=== PATIENT | male | born 1965 | race Caucasian/White ===

== ENCOUNTER → 2016-11-20 | Outpatient (CLI) | payer OTHER ==
[~2016-11-20] VITALS: Ht 177.8 cm; Wt 149.7 kg
[~2016-11-20] MED LIST: ACET500C OR; ACTO45TA OR; ADVI200T PO; ALLERGY RELIEF PO; ALPH600C PO; ALTA10CA OR; ALTA1CAP4 PO; AMLO5TAB2 PO; AMOX500C OR; ASPI325T OR; ATOR40TA75 PO; BENF150C PO; CLAR1TAB2 PO; COLA100C2 OR; DOCU10CA PO; GABA-282 PO; GLUC1000 OR; GREE1CAP5 PO; HYDR12CA PO; IBUP-1022 PO; INSULANT SC; LIDOCAINE 2% INJ 100 MG/5 ML SDV (FOR ANES.) As Ordered ONE; LOPR50TA OR; METF500T13 PO; METH1TAB40 PO; NORV5TAB OR; NS 1,000 ML IV ONE; NYST1POW9 TOP; PRAV20TA2 OR; PROBCAP4 PO; PROPOFOL 200 MG/20 ML VIAL As Ordered ONE; ROCE1INJ4 IV; SILV1CRE60 TOP; TYLE325T5 PO; [UNRECOGNIZED DRUG - OTHER] TOP; hctz PO
--- NOTE | 2016-11-20 10:52 | ROOR ---
Patient Name: Fermin Knapp Procedure Date: 11/20/2016 10:07 AM Date of : 1965 Age: 51 Room: [facility] Gender: Male Note Status: Finalized Procedure: Colonoscopy Indications: Screening for colorectal malignant neoplasm Providers: Reji Valdes MD Referring MD: FESTUS GOODEN MD Requesting Provider: Medicines: Monitored Anesthesia Care Complications: No immediate complications. Procedure: Pre-Anesthesia Assessment: - Prior to the procedure, a History and Physical was performed, and patient medications and allergies were reviewed. The patient is competent. The risks and benefits of the procedure and the sedation options and risks were discussed with the patient. All questions were answered and informed consent was obtained. Patient identification and proposed procedure were verified by the physician, the nurse and the pallet stone inserter in the procedure room. Mental Status Examination: alert and oriented. Airway Examination: normal oropharyngeal airway and neck mobility. Respiratory Examination: clear to auscultation. CV Examination: normal. Prophylactic Antibiotics: The patient does not require prophylactic antibiotics. Prior Anticoagulants: The patient has taken no previous anticoagulant or antiplatelet agents. ASA Grade Assessment: II - A patient with mild systemic disease. After reviewing the risks and benefits, the patient was deemed in satisfactory condition to undergo the procedure. The anesthesia plan was to use monitored anesthesia care (MAC). Immediately prior to administration of medications, the patient was re-assessed for adequacy to receive sedatives. The heart rate, respiratory rate, oxygen saturations, blood pressure, adequacy of pulmonary ventilation, and response to care were monitored throughout the procedure. The physical status of the patient was re-assessed after the procedure. The Colonoscope was introduced through the anus and advanced to the cecum, identified by appendiceal orifice and ileocecal valve. The colonoscopy was performed without difficulty. The patient tolerated the procedure well. The quality of the bowel preparation was adequate to identify polyps 6 mm and larger in size and fair. The ileocecal valve, appendiceal orifice, and rectum were photographed. Scope insertion time was 5 minutes. Scope withdrawal time was 20 minutes. The total duration of the procedure was 25 minutes. Findings: The perianal and digital rectal examinations were normal. A 4 mm polyp was found in the transverse colon. The polyp was sessile. The polyp was removed with a cold biopsy forceps. Resection and retrieval were complete. Verification of patient identification for the specimen was done by the physician and nurse using the patient's name, date and medical record number. Estimated blood loss was minimal. Multiple small and large-mouthed diverticula were found from sigmoid to descending colon. There was no evidence of diverticular bleeding. The exam was otherwise without abnormality on direct and retroflexion views. Impression: - Preparation of the colon was fair. - One 4 mm polyp in the transverse colon, removed with a cold biopsy forceps. Resected and retrieved. - Mild diverticulosis from sigmoid to descending colon. There was no evidence of diverticular bleeding. - The examination was otherwise normal on direct and retroflexion views. Recommendation: - Patient has a contact number available for emergencies. The signs and symptoms of potential delayed complications were discussed with the patient. Return to normal activities tomorrow. Written discharge instructions were provided to the patient. - High fiber diet. - Continue present medications. - Await pathology results. - Repeat colonoscopy in 3 years because the bowel preparation was suboptimal and for surveillance based on pathology results. - Return to GI clinic in 3 years. - Return to primary care physician. Reji Valdes MD Reji Valdes MD 11/20/2016 10:51:55 AM This report has been signed electronically. Number of Addenda: 0 Note Initiated On: 11/20/2016 10:07 AM Estimated Blood Loss: Estimated blood loss was minimal.
[2016-11-20 11:05] VITALS: BP 141/88
== END | disposition home or self-care (01) ==
LOC: M OPP 08:47
PROVIDERS: ATTEND Internal Medicine Gastroenterology
DX: Z12.11 Encounter for screening for malignant neoplasm of colon (principal); D12.3 Benign neoplasm of transverse colon; K57.30 Diverticulosis of large intestine without perforation or abscess without bleeding; I10 Essential (primary) hypertension; E78.5 Hyperlipidemia, unspecified; E11.9 Type 2 diabetes mellitus without complications; R51 Headache; G47.8 Other sleep disorders; G47.30 Sleep apnea, unspecified; R06.83 Snoring; F17.290 Nicotine dependence, other tobacco product, uncomplicated; Z88.8 Allergy status to other drugs, medicaments and biological substances; Z88.3 Allergy status to other anti-infective agents; Z79.84 Long term (current) use of oral hypoglycemic drugs; Z79.899 Other long term (current) drug therapy

== ENCOUNTER → 2019-06-08 | Outpatient (REF) | payer OTHER ==
[~2019-06-08] MED LIST changes: -AMLO5TAB2 PO; +AMLO5TAB6 PO; -GABA-282 PO; +GABA-843 PO; -LIDOCAINE 2% INJ 100 MG/5 ML SDV (FOR ANES.) As Ordered ONE; -NS 1,000 ML IV ONE; -PROPOFOL 200 MG/20 ML VIAL As Ordered ONE; -ROCE1INJ4 IV; +ROCE1INJ6 IV
== END ==
LOC: M LAB REF 15:21
PROVIDERS: ATTEND Podiatrist
DX: M79.672 Pain in left foot (principal)

== ENCOUNTER → 2020-07-31 | Outpatient (CLI) | payer OTHER ==
[~2020-07-31] MED LIST changes: +AMLO1TAB24 PO; -AMLO5TAB6 PO; +CLAR10CA3 PO; +GABA-282 PO; -GABA-843 PO; +METH-1164 PO; -METH1TAB40 PO; +benfotiamine PO
== END ==
LOC: M LABSMTC 09:53
PROVIDERS: ATTEND Anesthesiology
DX: Z01.812 Encounter for preprocedural laboratory examination (principal); Z20.822 Contact with and (suspected) exposure to COVID-19

== ENCOUNTER 2020-08-05 06:45 | Day surgery (SDC) | payer OTHER ==
[~2020-08-05] VITALS: Ht 177.8 cm; Wt 129.3 kg
[~2020-08-05 06:45] MED LIST changes: +NS 1,000 ML IV ONE
[2020-08-05] MEDS ORDERED: SIMETHICONE 40MG/0.6ML DROPS 30ML As Ordered ONE (06:46)
[2020-08-05] MEDS ORDERED: LIDOCAINE 2% 100MG/5ML SDV (FOR ANES.) As Ordered ONE (07:16)
[2020-08-05] MEDS ORDERED: propofoL 200 MG/20 ML VIAL As Ordered ONE ×2 (07:16→08:02)
[2020-08-05] MEDS ORDERED: PHENYLephrine 500MCG 5ML (100MCG/ML) SYRINGE As Ordered ONE (08:04)
--- NOTE | 2020-08-05 08:09 | ROOR ---
Patient Name: Fermin Knapp Procedure Date: 08/05/2020 7:34 AM Date of : 1965 Age: 55 Room: [facility] Gender: Male Note Status: Finalized Procedure: Colonoscopy Indications: High risk colon cancer surveillance: Personal history of colonic polyps Providers: Reji Valdes MD Referring MD: FESTUS GOODEN MD Requesting Provider: Medicines: Monitored Anesthesia Care Complications: No immediate complications. Procedure: Pre-Anesthesia Assessment: - Prior to the procedure, a History and Physical was performed, and patient medications and allergies were reviewed. The patient is competent. The risks and benefits of the procedure and the sedation options and risks were discussed with the patient. All questions were answered and informed consent was obtained. Patient identification and proposed procedure were verified by the physician, the nurse and the anesthesiologist in the procedure room. Mental Status Examination: alert and oriented. Airway Examination: normal oropharyngeal airway and neck mobility. Respiratory Examination: clear to auscultation. CV Examination: normal. Prophylactic Antibiotics: The patient does not require prophylactic antibiotics. Prior Anticoagulants: The patient has taken no previous anticoagulant or antiplatelet agents. ASA Grade Assessment: II - A patient with mild systemic disease. After reviewing the risks and benefits, the patient was deemed in satisfactory condition to undergo the procedure. The anesthesia plan was to use monitored anesthesia care (MAC). Immediately prior to administration of medications, the patient was re-assessed for adequacy to receive sedatives. The heart rate, respiratory rate, oxygen saturations, blood pressure, adequacy of pulmonary ventilation, and response to care were monitored throughout the procedure. The physical status of the patient was re-assessed after the procedure. The Colonoscope was introduced through the anus and advanced to the terminal ileum, with identification of the appendiceal orifice and IC valve. The colonoscopy was performed without difficulty. The patient tolerated the procedure well. The quality of the bowel preparation was good. The terminal ileum, ileocecal valve, appendiceal orifice, and rectum were photographed. Scope insertion time was 2 minutes. Scope withdrawal time was 8 minutes. The total duration of the procedure was 10 minutes. Findings: The perianal and digital rectal examinations were normal. The terminal ileum appeared normal. Four sessile polyps were found in the sigmoid colon, descending colon and transverse colon. The polyps were 5 to 8 mm in size. These polyps were removed with a jumbo cold forceps. Resection and retrieval were complete. Verification of patient identification for the specimen was done by the physician and nurse using the patient's name, date and medical record number. Estimated blood loss was minimal. Multiple small and large-mouthed diverticula were found from sigmoid to descending colon. There was no evidence of diverticular bleeding. Non-bleeding external and internal hemorrhoids were found during retroflexion. The hemorrhoids were medium-sized. Impression: - The examined portion of the ileum was normal. - Four 5 to 8 mm polyps in the sigmoid colon, in the descending colon and in the transverse colon, removed with a jumbo cold forceps. Resected and retrieved. - Moderate diverticulosis from sigmoid to descending colon. There was no evidence of diverticular bleeding. - Non-bleeding external and internal hemorrhoids. Recommendation: - Patient has a contact number available for emergencies. The signs and symptoms of potential delayed complications were discussed with the patient. Return to normal activities tomorrow. Written discharge instructions were provided to the patient. - High fiber diet. - Continue present medications. - Await pathology results. - Use fiber, for example Citrucel, Fibercon, Konsyl or Metamucil. - Repeat colonoscopy in 3 - 5 years for surveillance based on pathology results. - Telephone GI clinic for pathology results in 2 weeks. - Return to primary care physician. Procedure Code(s): --- Professional --- 08159, Colonoscopy, flexible; with biopsy, single or multiple Diagnosis Code(s): --- Professional --- Z86.010, Personal history of colonic polyps K64.8, Other hemorrhoids K63.5, Polyp of colon K57.30, Diverticulosis of large intestine without perforation or abscess without bleeding CPT copyright 2019 [employer]. All rights reserved. The codes documented in this report are preliminary and upon stull hewer review may be revised to meet current compliance requirements. Reji Valdes MD Reji Valdes MD 08/05/2020 8:08:28 AM Electronically signed by Reji Valdes MD Number of Addenda: 0 Note Initiated On: 08/05/2020 7:34 AM Estimated Blood Loss: Estimated blood loss was minimal.
[2020-08-05 08:35] VITALS: BP 144/85
== END 2020-08-05 08:40 | disposition home or self-care (01) ==
LOC: M OPP 06:45
PROVIDERS: ATTEND Internal Medicine Gastroenterology
DX: Z12.11 Encounter for screening for malignant neoplasm of colon (principal); Z86.010 Personal history of colon polyps; D12.6 Benign neoplasm of colon, unspecified; K57.30 Diverticulosis of large intestine without perforation or abscess without bleeding; K64.8 Other hemorrhoids; G47.30 Sleep apnea, unspecified; E11.9 Type 2 diabetes mellitus without complications; Z79.84 Long term (current) use of oral hypoglycemic drugs; Z79.899 Other long term (current) drug therapy; Z88.8 Allergy status to other drugs, medicaments and biological substances; Z91.048 Other nonmedicinal substance allergy status
CPT/HCPCS: 45380; 88305; J2370

== ENCOUNTER 2022-06-10 14:00 | Inpatient (IN) | payer OTHER ==
[~2022-06-10] VITALS: Ht 180.3 cm; Wt 132.3 kg
[~2022-06-10 14:00] MED LIST changes: -NS 1,000 ML IV ONE
[2022-06-10 15:45] LABS: HEMATOCRIT 33.1 % (42.0-52.0); HEMOGLOBIN 11.5 g/dl (13.5-17.5); MEAN CORPUSCULAR HEMOGLOBIN 30.2 pg (27.0-33.0); MEAN CORPUSCULAR HGB CONC 34.7 g/dl (32.0-36.5); MEAN CORPUSCULAR VOLUME 86.9 fl (80.0-96.0); PLATELET COUNT, AUTOMATED 419 10^3/uL (150-450); RED BLOOD COUNT 3.81 10^6/uL (4.30-6.10); WHITE BLOOD COUNT 13.2 10^3/uL (4.0-10.0)
[2022-06-10] MEDS ORDERED: BENF150C3 PO (16:04)
[2022-06-10] MEDS ORDERED: AMLO1TAB25 PO (16:04)
[2022-06-10] MEDS ORDERED: ATOR80TA59 PO (16:04)
[2022-06-10] MEDS ORDERED: METF10004 PO (16:04)
[2022-06-10] MEDS ORDERED: SILV50CR TOP (16:05)
[2022-06-10] MEDS ORDERED: HOME MED LIST COMPLETE! XX SCH (16:05)
[2022-06-10 16:08] LABS: EOSINOPHILS 1 % (0-3); LYMPHOCYTES 14 % (16-44); MONOCYTES 3 % (0-5); NEUTROPHILS 81 % (28-66)
[2022-06-10 16:10] LABS: PLATELET ESTIMATE NORMAL (NORMAL); TOXIC GRANULATION 1+
[2022-06-10 16:11] LABS: ERYTHROCYTE SEDIMENTATION RATE > 130 mm/hr (0-20)
[2022-06-10 16:13] LABS: ABG BASE EXCESS 0.2 (-2.0-2.0); ABG HCO3 22.9 MEQ/L (22.0-26.0); ABG O2 SATURATION 91.3 % (95.0-99.0); ABG PARTIAL PRESSURE CO2 30.9 mmHg (35.0-45.0); ABG PARTIAL PRESSURE O2 58.9 mmHg (75.0-100.0); ABG STANDARD HCO3 24.6 MEQ/L (22.0-26.0); ABG TOTAL CO2 23.9 MEQ/L (22.0-29.0); ABG pH (ARTERIAL) 7.488 UNITS (7.350-7.450)
[2022-06-10 16:19] LABS: BLOOD UREA NITROGEN 43 MG/DL (9-23); CALCIUM LEVEL 8.2 MG/DL (8.5-10.1); CARBON DIOXIDE LEVEL 26 MMOL/L (20-31); CHLORIDE LEVEL 90 MMOL/L (98-107); CREATININE FOR GFR 1.19 MG/DL (0.70-1.30); GLOMERULAR FILTRATION RATE > 60.0 (>56); GLUCOSE, FASTING 210 MG/DL (60-100); POTASSIUM SERUM 3.7 MMOL/L (3.5-5.1); SODIUM LEVEL 127 MMOL/L (136-145)
[2022-06-10 16:48] LABS: HEMOGLOBIN A1c 6.7 % (4.0-6.0)
[2022-06-10] MEDS ORDERED: ISOVUE-370 76% 100ML VIAL As Ordered ONE (17:13)
[2022-06-10] MEDS ORDERED: NS IV ONE (18:35)
[2022-06-10] MEDS ORDERED: CEFEPIME HCL 2 GM in D5W MINI-BAG PLUS 50 ML IV ONE (18:35)
[2022-06-10] MEDS ORDERED: LIDOCAINE 2% 5ML JELLY UROJET TOP ONE (20:30)
[2022-06-10] MEDS ORDERED: IPRATROPIUM 0.5MG/ALBUTEROL 2.5MG INH SOL UD 3ML (DUONEB) NEB PRN (20:55)
[2022-06-10] MEDS ORDERED: GLUCOSE 4GM CHEW TABLET PO PRN (20:55)
[2022-06-10] MEDS ORDERED: ACETAMINOPHEN TAB 650MG DOSE (2X325MG) PO PRN (20:55)
[2022-06-10] MEDS ORDERED: DEXTROSE 50% 50ML SYRINGE IV PRN (20:55)
[2022-06-10] MEDS ORDERED: GLUCAGON INJ 1MG VIAL SC PRN (20:55)
[2022-06-10] MEDS ORDERED: VANCOMYCIN HCL 1,000 MG, VIAL MATE ADAPTER 1 EACH in NS 250 ML IV SCH (20:55)
[2022-06-10] MEDS: INSULIN LISPRO (NovoLOG) PER UNIT SC SCH (21:00)
[2022-06-10] MEDS ORDERED: DOCUSATE SODIUM 100MG CAPSULE PO SCH (21:00)
[2022-06-10] MEDS ORDERED: VANCOMYCIN HCL 1,000 MG, VIAL MATE ADAPTER 1 EACH in NS 250 ML IV ONE ×2 (22:00→23:00)
[2022-06-10] MEDS: SILVER SULFADIAZINE 1% CR 50 GM JAR TOP SCH (22:11)
[2022-06-10] MEDS: LR 1,000 ML IV SCH (22:12)
[2022-06-10] MEDS: GABAPENTIN 300 MG CAP PO SCH (22:12)
[2022-06-10] MEDS: ENOXAPARIN 40MG/0.4ML SYRINGE (J1650 PER 10MG) SC SCH (22:12)
[2022-06-10 23:06] LABS: OSMOLALITY SERUM 283 MOSM/KG (275-295)
[2022-06-11] VITALS (27 sets, daily range): BP systolic 100–135; BP diastolic 55–75; O2SAT 90–95
[2022-06-11] MEDS: PIPERACILLIN/TAZOBACTAM SOD 3.375 GM in D5W MINI-BAG PLUS 50 ML IV SCH ×3 (02:02→13:14)
[2022-06-11] MEDS: LR 1,000 ML IV SCH (02:02)
[2022-06-11 05:36] LABS: HEMATOCRIT 27.4 % (42.0-52.0); HEMOGLOBIN 9.6 g/dl (13.5-17.5); MEAN CORPUSCULAR HEMOGLOBIN 30.1 pg (27.0-33.0); MEAN CORPUSCULAR VOLUME 85.9 fl (80.0-96.0); PLATELET COUNT, AUTOMATED 355 10^3/uL (150-450); RED BLOOD COUNT 3.19 10^6/uL (4.30-6.10); WHITE BLOOD COUNT 11.4 10^3/uL (4.0-10.0)
[2022-06-11 06:01] LABS: ALBUMIN 1.4 G/DL (3.2-5.2); ALKALINE PHOSPHATASE 94 U/L (46-116); ALT/SGPT 69 U/L (7.0-40); AST/SGOT 247 U/L (<34); BLOOD UREA NITROGEN 46 MG/DL (9-23); CALCIUM LEVEL 7.5 MG/DL (8.5-10.1); CARBON DIOXIDE LEVEL 24 MMOL/L (20-31); CHLORIDE LEVEL 96 MMOL/L (98-107); CREATININE FOR GFR 1.29 MG/DL (0.70-1.30); GLOMERULAR FILTRATION RATE > 60.0 (>56); GLUCOSE, FASTING 196 MG/DL (60-100); MAGNESIUM LEVEL 2.1 MG/DL (1.8-2.4); POTASSIUM SERUM 3.4 MMOL/L (3.5-5.1); SODIUM LEVEL 128 MMOL/L (136-145)
[2022-06-11 07:44] LABS: VANCOMYCIN RANDOM 18.7 UG/ML
[2022-06-11] MEDS ORDERED: VANCOMYCIN HCL 750 MG, VIAL MATE ADAPTER 1 EACH in D5W 250 ML IV SCH ×2 (08:00→09:00)
[2022-06-11] MEDS: VANCOMYCIN HCL 500 MG in D5W MINI-BAG PLUS 100 ML IV SCH ×3 (09:14→22:33)
[2022-06-11] MEDS: ATORVASTATIN 20 MG TAB PO SCH (09:14)
[2022-06-11] MEDS: LORATADINE 10 MG TAB PO SCH (09:16)
[2022-06-11] MEDS: GABAPENTIN 300 MG CAP PO SCH ×3 (09:16→21:10)
[2022-06-11] MEDS: INSULIN LISPRO (NovoLOG) PER UNIT SC SCH ×4 (09:18→21:27)
[2022-06-11] MEDS: ENOXAPARIN 40MG/0.4ML SYRINGE (J1650 PER 10MG) SC SCH ×2 (09:18→21:11)
[2022-06-11] MEDS: SILVER SULFADIAZINE 1% CR 50 GM JAR TOP SCH ×2 (09:18→21:12)
[2022-06-11] MEDS: VANCOMYCIN HCL 750 MG, VIAL MATE ADAPTER 1 EACH in D5W 250 ML IV SCH ×2 (09:57→21:10)
[2022-06-11] MEDS ORDERED: POTASSIUM CHLORIDE 10MEQ SR TABLET PO ONE (10:05)
[2022-06-11] MEDS: NS 1,000 ML IV SCH (11:13)
[2022-06-11] MEDS: NYSTATIN OINTMENT 15 GM TOP SCH ×2 (13:13→21:11)
[2022-06-11 15:08] LABS: BLOOD UREA NITROGEN 46 MG/DL (9-23); CALCIUM LEVEL 7.9 MG/DL (8.5-10.1); CARBON DIOXIDE LEVEL 25 MMOL/L (20-31); CHLORIDE LEVEL 94 MMOL/L (98-107); CREATININE FOR GFR 1.18 MG/DL (0.70-1.30); GLOMERULAR FILTRATION RATE > 60.0 (>56); GLUCOSE, FASTING 279 MG/DL (60-100); POTASSIUM SERUM 3.6 MMOL/L (3.5-5.1); SODIUM LEVEL 127 MMOL/L (136-145)
[2022-06-11] MEDS ORDERED: PROHANCE 279.3MG/ML 5ML VIAL As Ordered ONE (18:48)
[2022-06-11] MEDS ORDERED: PROHANCE 279.3MG/ML 15ML VIAL As Ordered ONE (18:48)
[2022-06-12] VITALS (24 sets, daily range): BP systolic 111–128; BP diastolic 59–73; O2SAT 78–97
[2022-06-12] MEDS: NS 1,000 ML IV SCH (03:35)
[2022-06-12 07:14] LABS: HEMATOCRIT 27.2 % (42.0-52.0); HEMOGLOBIN 9.3 g/dl (13.5-17.5); MEAN CORPUSCULAR HEMOGLOBIN 29.8 pg (27.0-33.0); MEAN CORPUSCULAR HGB CONC 34.2 g/dl (32.0-36.5); MEAN CORPUSCULAR VOLUME 87.2 fl (80.0-96.0); PLATELET COUNT, AUTOMATED 403 10^3/uL (150-450); RED BLOOD COUNT 3.12 10^6/uL (4.30-6.10); WHITE BLOOD COUNT 12.6 10^3/uL (4.0-10.0)
[2022-06-12 07:32] LABS: VANCOMYCIN LEVEL TROUGH 19.8 UG/ML (10.0-20.0)
[2022-06-12 07:36] LABS: ALBUMIN 1.3 G/DL (3.2-5.2); ALKALINE PHOSPHATASE 104 U/L (46-116); ALT/SGPT 67 U/L (7.0-40); AST/SGOT 174 U/L (<34); BILIRUBIN,TOTAL 1.3 MG/DL (0.3-1.2); BLOOD UREA NITROGEN 41 MG/DL (9-23); CALCIUM LEVEL 7.9 MG/DL (8.5-10.1); CARBON DIOXIDE LEVEL 24 MMOL/L (20-31); CHLORIDE LEVEL 98 MMOL/L (98-107); CREATININE FOR GFR 0.94 MG/DL (0.70-1.30); GLOMERULAR FILTRATION RATE > 60.0 (>56); GLUCOSE, FASTING 207 MG/DL (60-100); MAGNESIUM LEVEL 2.1 MG/DL (1.8-2.4); POTASSIUM SERUM 3.9 MMOL/L (3.5-5.1); SODIUM LEVEL 129 MMOL/L (136-145); TOTAL PROTEIN 5.2 G/DL (5.7-8.2)
[2022-06-12] MEDS: VANCOMYCIN HCL 1,000 MG, VIAL MATE ADAPTER 1 EACH in D5W 250 ML IV SCH ×2 (08:41→21:14)
[2022-06-12] MEDS: INSULIN LISPRO (NovoLOG) PER UNIT SC SCH ×4 (08:41→21:14)
[2022-06-12] MEDS: GABAPENTIN 300 MG CAP PO SCH ×3 (10:22→21:17)
[2022-06-12] MEDS: LORATADINE 10 MG TAB PO SCH (10:22)
[2022-06-12] MEDS: ENOXAPARIN 40MG/0.4ML SYRINGE (J1650 PER 10MG) SC SCH ×2 (10:22→21:17)
[2022-06-12] MEDS: SILVER SULFADIAZINE 1% CR 50 GM JAR TOP SCH ×2 (10:23→21:21)
[2022-06-12] MEDS: ATORVASTATIN 20 MG TAB PO SCH (10:23)
[2022-06-12] MEDS: NYSTATIN OINTMENT 15 GM TOP SCH ×2 (10:23→21:21)
[2022-06-13] VITALS (7 sets, daily range): BP systolic 123–151; BP diastolic 57–76
[2022-06-13 07:05] LABS: HEMATOCRIT 28.1 % (42.0-52.0); HEMOGLOBIN 9.6 g/dl (13.5-17.5); MEAN CORPUSCULAR HEMOGLOBIN 30.4 pg (27.0-33.0); MEAN CORPUSCULAR HGB CONC 34.2 g/dl (32.0-36.5); MEAN CORPUSCULAR VOLUME 88.9 fl (80.0-96.0); PLATELET COUNT, AUTOMATED 452 10^3/uL (150-450); RED BLOOD COUNT 3.16 10^6/uL (4.30-6.10); WHITE BLOOD COUNT 12.1 10^3/uL (4.0-10.0)
[2022-06-13 07:34] LABS: ALBUMIN 1.3 G/DL (3.2-5.2); ALKALINE PHOSPHATASE 119 U/L (46-116); ALT/SGPT 75 U/L (7.0-40); AST/SGOT 137 U/L (<34); BILIRUBIN,TOTAL 0.9 MG/DL (0.3-1.2); BLOOD UREA NITROGEN 34 MG/DL (9-23); CALCIUM LEVEL 8.2 MG/DL (8.5-10.1); CARBON DIOXIDE LEVEL 26 MMOL/L (20-31); CHLORIDE LEVEL 101 MMOL/L (98-107); CREATININE FOR GFR 0.77 MG/DL (0.70-1.30); GLOMERULAR FILTRATION RATE > 60.0 (>56); GLUCOSE, FASTING 201 MG/DL (60-100); MAGNESIUM LEVEL 1.9 MG/DL (1.8-2.4); SODIUM LEVEL 134 MMOL/L (136-145); TOTAL PROTEIN 5.6 G/DL (5.7-8.2)
[2022-06-13] MEDS: ceFAZolin SOD 2 GM in IV 1 EA IV SCH ×2 (08:28→16:21)
[2022-06-13] MEDS: ENOXAPARIN 40MG/0.4ML SYRINGE (J1650 PER 10MG) SC SCH ×2 (08:28→21:22)
[2022-06-13] MEDS: INSULIN LISPRO (NovoLOG) PER UNIT SC SCH ×4 (08:29→21:00)
[2022-06-13] MEDS: LORATADINE 10 MG TAB PO SCH (08:29)
[2022-06-13] MEDS: GABAPENTIN 300 MG CAP PO SCH ×3 (08:29→21:22)
[2022-06-13] MEDS: ATORVASTATIN 20 MG TAB PO SCH (08:29)
[2022-06-13] MEDS: NYSTATIN OINTMENT 15 GM TOP SCH ×2 (08:30→21:22)
[2022-06-13] MEDS: SILVER SULFADIAZINE 1% CR 50 GM JAR TOP SCH ×2 (08:30→21:23)
[2022-06-14] MEDS: ceFAZolin SOD 2 GM in IV 1 EA IV SCH ×3 (00:35→16:44)
[2022-06-14 03:37] VITALS: BP 149/79
[2022-06-14 05:45] LABS: HEMATOCRIT 29.5 % (42.0-52.0); HEMOGLOBIN 9.8 g/dl (13.5-17.5); MEAN CORPUSCULAR HEMOGLOBIN 30.1 pg (27.0-33.0); MEAN CORPUSCULAR HGB CONC 33.2 g/dl (32.0-36.5); MEAN CORPUSCULAR VOLUME 90.5 fl (80.0-96.0); PLATELET COUNT, AUTOMATED 448 10^3/uL (150-450); RED BLOOD COUNT 3.26 10^6/uL (4.30-6.10); WHITE BLOOD COUNT 12.8 10^3/uL (4.0-10.0)
[2022-06-14 06:09] LABS: ALBUMIN 1.3 G/DL (3.2-5.2); ALKALINE PHOSPHATASE 110 U/L (46-116); ALT/SGPT 55 U/L (7.0-40); AST/SGOT 98 U/L (<34); BILIRUBIN,TOTAL 0.8 MG/DL (0.3-1.2); BLOOD UREA NITROGEN 30 MG/DL (9-23); CALCIUM LEVEL 8.4 MG/DL (8.5-10.1); CARBON DIOXIDE LEVEL 27 MMOL/L (20-31); CHLORIDE LEVEL 101 MMOL/L (98-107); CREATININE FOR GFR 0.81 MG/DL (0.70-1.30); GLOMERULAR FILTRATION RATE > 60.0 (>56); GLUCOSE, FASTING 156 MG/DL (60-100); MAGNESIUM LEVEL 1.8 MG/DL (1.8-2.4); POTASSIUM SERUM 3.7 MMOL/L (3.5-5.1); SODIUM LEVEL 135 MMOL/L (136-145); TOTAL PROTEIN 5.8 G/DL (5.7-8.2)
[2022-06-14 07:40] VITALS: BP 151/85
[2022-06-14] MEDS: ENOXAPARIN 40MG/0.4ML SYRINGE (J1650 PER 10MG) SC SCH ×2 (08:03→20:59)
[2022-06-14] MEDS: INSULIN LISPRO (NovoLOG) PER UNIT SC SCH ×4 (08:03→20:44)
[2022-06-14] MEDS: GABAPENTIN 300 MG CAP PO SCH ×3 (08:04→21:10)
[2022-06-14] MEDS: ATORVASTATIN 20 MG TAB PO SCH (08:04)
[2022-06-14] MEDS: LORATADINE 10 MG TAB PO SCH (08:04)
[2022-06-14] MEDS: LACTOBACILLUS ACIDOPHILUS CAP (BACID) PO SCH (08:04)
[2022-06-14] MEDS: NYSTATIN OINTMENT 15 GM TOP SCH ×2 (08:05→22:13)
[2022-06-14] MEDS: SILVER SULFADIAZINE 1% CR 50 GM JAR TOP SCH ×2 (08:05→22:14)
[2022-06-14] MEDS: ramipriL 5 MG CAP PO SCH ×2 (10:52→21:11)
[2022-06-14 12:00] VITALS: BP 141/74
[2022-06-14 14:00] VITALS: BP 121/59
[2022-06-14 20:36] VITALS: BP 128/66
[2022-06-14] MEDS ORDERED: guaiFENesin DM LIQ 10ML UD PO PRN (20:40)
[2022-06-15] MEDS: ceFAZolin SOD 2 GM in IV 1 EA IV SCH ×4 (00:24→23:49)
[2022-06-15 05:29] VITALS: BP 156/84
[2022-06-15 06:03] LABS: HEMATOCRIT 28.7 % (42.0-52.0); HEMOGLOBIN 9.6 g/dl (13.5-17.5); MEAN CORPUSCULAR HEMOGLOBIN 30.5 pg (27.0-33.0); MEAN CORPUSCULAR HGB CONC 33.4 g/dl (32.0-36.5); MEAN CORPUSCULAR VOLUME 91.1 fl (80.0-96.0); PLATELET COUNT, AUTOMATED 438 10^3/uL (150-450); RED BLOOD COUNT 3.15 10^6/uL (4.30-6.10); WHITE BLOOD COUNT 12.3 10^3/uL (4.0-10.0)
[2022-06-15 06:35] LABS: ALBUMIN 1.3 G/DL (3.2-5.2); ALKALINE PHOSPHATASE 93 U/L (46-116); ALT/SGPT 42 U/L (7.0-40); AST/SGOT 79 U/L (<34); BILIRUBIN,TOTAL 0.5 MG/DL (0.3-1.2); BLOOD UREA NITROGEN 32 MG/DL (9-23); CALCIUM LEVEL 8.1 MG/DL (8.5-10.1); CARBON DIOXIDE LEVEL 26 MMOL/L (20-31); CHLORIDE LEVEL 105 MMOL/L (98-107); CREATININE FOR GFR 0.89 MG/DL (0.70-1.30); GLOMERULAR FILTRATION RATE > 60.0 (>56); GLUCOSE, FASTING 152 MG/DL (60-100); MAGNESIUM LEVEL 1.7 MG/DL (1.8-2.4); POTASSIUM SERUM 3.8 MMOL/L (3.5-5.1); SODIUM LEVEL 138 MMOL/L (136-145); TOTAL PROTEIN 5.7 G/DL (5.7-8.2)
[2022-06-15] MEDS: INSULIN LISPRO (NovoLOG) PER UNIT SC SCH ×5 (07:30→20:27)
[2022-06-15] MEDS ORDERED: MAG SULF 1GM/100ML (MAG RUN) 1 GM in IV 1 EA IV ONE (07:45)
[2022-06-15 09:00] VITALS: O2SAT 90
[2022-06-15] MEDS: LORATADINE 10 MG TAB PO SCH (09:17)
[2022-06-15] MEDS: ramipriL 5 MG CAP PO SCH ×2 (09:17→20:34)
[2022-06-15] MEDS: ATORVASTATIN 20 MG TAB PO SCH (09:17)
[2022-06-15] MEDS: GABAPENTIN 300 MG CAP PO SCH ×3 (09:17→20:47)
[2022-06-15] MEDS: LACTOBACILLUS ACIDOPHILUS CAP (BACID) PO SCH (09:18)
[2022-06-15] MEDS: ENOXAPARIN 40MG/0.4ML SYRINGE (J1650 PER 10MG) SC SCH (09:18)
[2022-06-15] MEDS: SILVER SULFADIAZINE 1% CR 50 GM JAR TOP SCH ×2 (09:19→21:57)
[2022-06-15] MEDS: NYSTATIN OINTMENT 15 GM TOP SCH ×2 (09:19→21:55)
[2022-06-15 14:00] VITALS: BP 133/71
[2022-06-16] VITALS (10 sets, daily range): BP systolic 106–128; BP diastolic 63–74; O2SAT 92–94
[2022-06-16 06:07] LABS: HEMATOCRIT 28.5 % (42.0-52.0); HEMOGLOBIN 9.4 g/dl (13.5-17.5); MEAN CORPUSCULAR HEMOGLOBIN 30.1 pg (27.0-33.0); MEAN CORPUSCULAR VOLUME 91.3 fl (80.0-96.0); PLATELET COUNT, AUTOMATED 423 10^3/uL (150-450); RED BLOOD COUNT 3.12 10^6/uL (4.30-6.10); WHITE BLOOD COUNT 11.5 10^3/uL (4.0-10.0)
[2022-06-16 06:42] LABS: ALBUMIN 1.3 G/DL (3.2-5.2); ALKALINE PHOSPHATASE 88 U/L (46-116); ALT/SGPT 26 U/L (7.0-40); AST/SGOT 59 U/L (<34); BILIRUBIN,TOTAL 0.5 MG/DL (0.3-1.2); BLOOD UREA NITROGEN 28 MG/DL (9-23); CALCIUM LEVEL 7.9 MG/DL (8.5-10.1); CARBON DIOXIDE LEVEL 28 MMOL/L (20-31); CHLORIDE LEVEL 104 MMOL/L (98-107); CREATININE FOR GFR 0.75 MG/DL (0.70-1.30); GLOMERULAR FILTRATION RATE > 60.0 (>56); GLUCOSE, FASTING 148 MG/DL (60-100); MAGNESIUM LEVEL 1.6 MG/DL (1.8-2.4); POTASSIUM SERUM 3.3 MMOL/L (3.5-5.1); SODIUM LEVEL 137 MMOL/L (136-145); TOTAL PROTEIN 5.6 G/DL (5.7-8.2)
[2022-06-16] MEDS: INSULIN LISPRO (NovoLOG) PER UNIT SC SCH ×4 (07:30→21:00)
[2022-06-16] MEDS ORDERED: KCL 10MEQ/100ML SWI (KRUN) 10 MEQ in IV 1 EA IV ONE (07:45)
[2022-06-16] MEDS ORDERED: MAG SULF 1GM/100ML (MAG RUN) 1 GM in IV 1 EA IV ONE (07:45)
[2022-06-16] MEDS: SILVER SULFADIAZINE 1% CR 50 GM JAR TOP SCH ×2 (08:15→20:36)
[2022-06-16] MEDS: ramipriL 5 MG CAP PO SCH ×2 (09:39→20:38)
[2022-06-16] MEDS: LORATADINE 10 MG TAB PO SCH (09:40)
[2022-06-16] MEDS: LACTOBACILLUS ACIDOPHILUS CAP (BACID) PO SCH (09:40)
[2022-06-16] MEDS: GABAPENTIN 300 MG CAP PO SCH ×3 (09:40→20:37)
[2022-06-16] MEDS: NYSTATIN OINTMENT 15 GM TOP SCH ×2 (09:40→21:00)
[2022-06-16] MEDS: ATORVASTATIN 20 MG TAB PO SCH (09:40)
[2022-06-16] MEDS: ceFAZolin SOD 2 GM in IV 1 EA IV SCH ×3 (11:43→23:50)
[2022-06-16] MEDS ORDERED: SUGAMMADEX SODIUM 500 MG/5 ML VIAL (BRIDION) As Ordered ONE (16:30)
[2022-06-16] MEDS ORDERED: ROCURONIUM BROMIDE 50MG/5ML VIAL As Ordered ONE (16:30)
[2022-06-16] MEDS ORDERED: propofoL 200 MG/20 ML VIAL As Ordered ONE (16:30)
[2022-06-16] MEDS ORDERED: ONDANSETRON 4MG 2ML VIAL As Ordered ONE (16:30)
[2022-06-16] MEDS ORDERED: LIDOCAINE 2% 100MG/5ML SDV (FOR ANES.) As Ordered ONE (16:30)
[2022-06-16] MEDS ORDERED: fentaNYL 100 MCG/2 ML INJECTION As Ordered ONE ×2 (16:38→17:43)
[2022-06-16] MEDS ORDERED: ceFAZolin 2 GM/D5W 50 ML IV BAG As Ordered ONE (17:31)
[2022-06-16] MEDS ORDERED: ACETAMINOPHEN 1000MG 100ML IV BAG As Ordered ONE (17:35)
[2022-06-16] MEDS ORDERED: HYDROmorphone HCL 2MG/ML 1ML VIAL As Ordered ONE (18:27)
[2022-06-16] MEDS ORDERED: MORPHINE 2 MG/ML 1ML VIAL IV PRN (19:15)
[2022-06-16] MEDS ORDERED: ONDANSETRON 4MG 2ML VIAL IV PRN (19:15)
[2022-06-16] MEDS ORDERED: oxyCODONE 5MG TAB PO PRN (19:15)
[2022-06-16] MEDS ORDERED: fentaNYL 100 MCG/2 ML INJECTION IV PRN (19:15)
[2022-06-16] MEDS: ENOXAPARIN 40MG/0.4ML SYRINGE (J1650 PER 10MG) SC SCH (21:51)
[2022-06-17] VITALS (10 sets, daily range): BP systolic 112–131; BP diastolic 60–74; O2SAT 82–95
[2022-06-17 06:37] LABS: HEMATOCRIT 27.4 % (42.0-52.0); HEMOGLOBIN 8.9 g/dl (13.5-17.5); MEAN CORPUSCULAR HEMOGLOBIN 30.1 pg (27.0-33.0); MEAN CORPUSCULAR HGB CONC 32.5 g/dl (32.0-36.5); MEAN CORPUSCULAR VOLUME 92.6 fl (80.0-96.0); PLATELET COUNT, AUTOMATED 418 10^3/uL (150-450); RED BLOOD COUNT 2.96 10^6/uL (4.30-6.10); WHITE BLOOD COUNT 9.6 10^3/uL (4.0-10.0)
[2022-06-17 07:04] LABS: ALBUMIN 1.4 G/DL (3.2-5.2); ALKALINE PHOSPHATASE 82 U/L (46-116); ALT/SGPT 23 U/L (7.0-40); AST/SGOT 56 U/L (<34); BILIRUBIN,TOTAL 0.5 MG/DL (0.3-1.2); BLOOD UREA NITROGEN 22 MG/DL (9-23); CALCIUM LEVEL 7.8 MG/DL (8.5-10.1); CARBON DIOXIDE LEVEL 29 MMOL/L (20-31); CHLORIDE LEVEL 104 MMOL/L (98-107); CREATININE FOR GFR 0.69 MG/DL (0.70-1.30); GLOMERULAR FILTRATION RATE > 60.0 (>56); GLUCOSE, FASTING 158 MG/DL (60-100); MAGNESIUM LEVEL 1.6 MG/DL (1.8-2.4); POTASSIUM SERUM 3.6 MMOL/L (3.5-5.1); SODIUM LEVEL 139 MMOL/L (136-145); TOTAL PROTEIN 5.9 G/DL (5.7-8.2)
[2022-06-17] MEDS ORDERED: MAGNESIUM OXIDE 400MG TAB (MAG-OX) PO ONE (08:00)
[2022-06-17] MEDS: INSULIN LISPRO (NovoLOG) PER UNIT SC SCH ×4 (08:35→23:57)
[2022-06-17] MEDS: ENOXAPARIN 40MG/0.4ML SYRINGE (J1650 PER 10MG) SC SCH ×2 (08:35→21:02)
[2022-06-17] MEDS: GABAPENTIN 300 MG CAP PO SCH ×3 (08:36→21:00)
[2022-06-17] MEDS: LACTOBACILLUS ACIDOPHILUS CAP (BACID) PO SCH (08:39)
[2022-06-17] MEDS: ramipriL 5 MG CAP PO SCH ×2 (08:39→21:01)
[2022-06-17] MEDS: ATORVASTATIN 20 MG TAB PO SCH (08:39)
[2022-06-17] MEDS: LORATADINE 10 MG TAB PO SCH (08:39)
[2022-06-17] MEDS: NYSTATIN OINTMENT 15 GM TOP SCH ×2 (09:00→21:03)
[2022-06-17] MEDS: ceFAZolin SOD 2 GM in IV 1 EA IV SCH ×2 (09:40→16:13)
[2022-06-17] MEDS: oxyCODONE 5MG TAB PO PRN ×3 (09:53→21:01)
[2022-06-17] MEDS: SIMETHICONE 80MG CHEW TAB PO PRN (09:53)
[2022-06-17] MEDS: SILVER SULFADIAZINE 1% CR 50 GM JAR TOP SCH (10:13)
[2022-06-17] MEDS ORDERED: FLEET ENEMA PR ONE (11:05)
[2022-06-17] MEDS ORDERED: INSULIN LISPRO (NovoLOG) PER UNIT SC ONE (13:55)
[2022-06-17] MEDS: NS 1,000 ML IV SCH (14:18)
[2022-06-17] MEDS: MIRALAX *UNIT DOSE* 17GM PACKET PO SCH ×2 (14:46→18:15)
[2022-06-17] MEDS ORDERED: MIRALAX *UNIT DOSE* 17GM PACKET PO SCH (18:00)
[2022-06-18] MEDS: ceFAZolin SOD 2 GM in IV 1 EA IV SCH ×4 (00:59→23:51)
[2022-06-18] MEDS: MIRALAX *UNIT DOSE* 17GM PACKET PO SCH ×5 (00:59→23:51)
[2022-06-18 05:53] VITALS: BP 141/72
[2022-06-18] MEDS: INSULIN LISPRO (NovoLOG) PER UNIT SC SCH ×4 (05:55→20:49)
[2022-06-18] MEDS: NS 1,000 ML IV SCH ×2 (05:55→23:51)
[2022-06-18 07:15] LABS: BASO % 0.3 % (0.0-1.0); EOS # 0.1 10^3/uL (0.0-0.5); EOS % 1.4 % (0.0-3.0); HEMATOCRIT 24.3 % (42.0-52.0); HEMOGLOBIN 8.1 g/dl (13.5-17.5); LYMPH # 1.8 10^3/uL (1.5-5.0); LYMPH % 23.2 % (24.0-44.0); MEAN CORPUSCULAR HGB CONC 33.3 g/dl (32.0-36.5); MEAN CORPUSCULAR VOLUME 93.1 fl (80.0-96.0); MONO # 0.4 10^3/uL (0.0-0.8); MONO % 5.1 % (2.0-8.0); NEUTROPHILS # 5.5 10^3/uL (1.5-8.5); PLATELET COUNT, AUTOMATED 352 10^3/uL (150-450); RED BLOOD COUNT 2.61 10^6/uL (4.30-6.10); WHITE BLOOD COUNT 7.9 10^3/uL (4.0-10.0)
[2022-06-18 07:41] LABS: ALBUMIN 1.3 G/DL (3.2-5.2); ALKALINE PHOSPHATASE 73 U/L (46-116); ALT/SGPT 16 U/L (7.0-40); AST/SGOT 32 U/L (<34); BILIRUBIN,TOTAL 0.5 MG/DL (0.3-1.2); BLOOD UREA NITROGEN 15 MG/DL (9-23); CALCIUM LEVEL 7.2 MG/DL (8.5-10.1); CARBON DIOXIDE LEVEL 29 MMOL/L (20-31); CHLORIDE LEVEL 107 MMOL/L (98-107); CREATININE FOR GFR 0.59 MG/DL (0.70-1.30); GLOMERULAR FILTRATION RATE > 60.0 (>56); GLUCOSE, FASTING 133 MG/DL (60-100); MAGNESIUM LEVEL 1.5 MG/DL (1.8-2.4); POTASSIUM SERUM 3.5 MMOL/L (3.5-5.1); SODIUM LEVEL 140 MMOL/L (136-145); TOTAL PROTEIN 5.5 G/DL (5.7-8.2)
[2022-06-18] MEDS ORDERED: MAGNESIUM OXIDE 400MG TAB (MAG-OX) PO ONE (07:45)
[2022-06-18] MEDS: ENOXAPARIN 40MG/0.4ML SYRINGE (J1650 PER 10MG) SC SCH ×2 (08:26→20:45)
[2022-06-18] MEDS: ramipriL 5 MG CAP PO SCH ×2 (08:27→20:45)
[2022-06-18] MEDS: ATORVASTATIN 20 MG TAB PO SCH (08:27)
[2022-06-18] MEDS: LACTOBACILLUS ACIDOPHILUS CAP (BACID) PO SCH (08:27)
[2022-06-18] MEDS: LORATADINE 10 MG TAB PO SCH (08:28)
[2022-06-18] MEDS: GABAPENTIN 300 MG CAP PO SCH ×3 (08:28→20:44)
[2022-06-18] MEDS: NYSTATIN OINTMENT 15 GM TOP SCH ×2 (08:29→20:45)
[2022-06-18 14:00] VITALS: BP 127/72
[2022-06-18 20:44] VITALS: BP 116/65
[2022-06-18] MEDS: SIMETHICONE 80MG CHEW TAB PO PRN (20:44)
[2022-06-18 21:43] VITALS: O2SAT 94
[2022-06-18 23:50] VITALS: O2SAT 82
[2022-06-18 23:55] VITALS: O2SAT 94
[2022-06-19 05:58] VITALS: BP 134/72
[2022-06-19] MEDS: MIRALAX *UNIT DOSE* 17GM PACKET PO SCH (06:04)
[2022-06-19 06:54] LABS: BASO % 0.3 % (0.0-1.0); EOS # 0.1 10^3/uL (0.0-0.5); EOS % 1.9 % (0.0-3.0); HEMATOCRIT 24.6 % (42.0-52.0); HEMOGLOBIN 7.8 g/dl (13.5-17.5); LYMPH # 1.9 10^3/uL (1.5-5.0); LYMPH % 27.7 % (24.0-44.0); MEAN CORPUSCULAR HEMOGLOBIN 29.8 pg (27.0-33.0); MEAN CORPUSCULAR HGB CONC 31.7 g/dl (32.0-36.5); MEAN CORPUSCULAR VOLUME 93.9 fl (80.0-96.0); MONO # 0.4 10^3/uL (0.0-0.8); MONO % 5.3 % (2.0-8.0); NEUTROPHILS # 4.5 10^3/uL (1.5-8.5); NEUTROPHILS % 64.4 % (36.0-66.0); PLATELET COUNT, AUTOMATED 352 10^3/uL (150-450); RED BLOOD COUNT 2.62 10^6/uL (4.30-6.10)
[2022-06-19 07:30] LABS: ALBUMIN 1.3 G/DL (3.2-5.2); ALKALINE PHOSPHATASE 78 U/L (46-116); ALT/SGPT 12 U/L (7.0-40); AST/SGOT 44 U/L (<34); BILIRUBIN,TOTAL 0.5 MG/DL (0.3-1.2); BLOOD UREA NITROGEN 13 MG/DL (9-23); CALCIUM LEVEL 6.9 MG/DL (8.5-10.1); CARBON DIOXIDE LEVEL 30 MMOL/L (20-31); CHLORIDE LEVEL 105 MMOL/L (98-107); CREATININE FOR GFR 0.65 MG/DL (0.70-1.30); GLOMERULAR FILTRATION RATE > 60.0 (>56); GLUCOSE, FASTING 125 MG/DL (60-100); MAGNESIUM LEVEL 1.6 MG/DL (1.8-2.4); POTASSIUM SERUM 3.8 MMOL/L (3.5-5.1); SODIUM LEVEL 138 MMOL/L (136-145); TOTAL PROTEIN 5.8 G/DL (5.7-8.2)
[2022-06-19] MEDS: ceFAZolin SOD 2 GM in IV 1 EA IV SCH ×3 (08:18→23:08)
[2022-06-19] MEDS: GABAPENTIN 300 MG CAP PO SCH ×3 (08:26→20:57)
[2022-06-19] MEDS: ENOXAPARIN 40MG/0.4ML SYRINGE (J1650 PER 10MG) SC SCH ×2 (08:26→20:51)
[2022-06-19] MEDS: ATORVASTATIN 20 MG TAB PO SCH (08:27)
[2022-06-19] MEDS: LORATADINE 10 MG TAB PO SCH (08:27)
[2022-06-19] MEDS: LACTOBACILLUS ACIDOPHILUS CAP (BACID) PO SCH (08:27)
[2022-06-19] MEDS: MAGNESIUM OXIDE 400MG TAB (MAG-OX) PO SCH ×3 (08:27→20:57)
[2022-06-19] MEDS: INSULIN LISPRO (NovoLOG) PER UNIT SC SCH ×4 (08:28→20:41)
[2022-06-19] MEDS: ramipriL 5 MG CAP PO SCH ×2 (08:28→20:57)
[2022-06-19] MEDS: NYSTATIN OINTMENT 15 GM TOP SCH ×2 (09:00→21:00)
[2022-06-19 14:00] VITALS: BP 129/60
[2022-06-19] MEDS ORDERED: MIRALAX *UNIT DOSE* 17GM PACKET PO SCH (21:00)
[2022-06-19 21:36] VITALS: BP 139/62
[2022-06-20 06:00] VITALS: BP 150/75
[2022-06-20 06:07] LABS: BASO % 0.3 % (0.0-1.0); EOS # 0.1 10^3/uL (0.0-0.5); EOS % 1.7 % (0.0-3.0); HEMATOCRIT 24.1 % (42.0-52.0); HEMOGLOBIN 7.7 g/dl (13.5-17.5); LYMPH % 31.1 % (24.0-44.0); MEAN CORPUSCULAR HEMOGLOBIN 30.2 pg (27.0-33.0); MEAN CORPUSCULAR VOLUME 94.5 fl (80.0-96.0); MONO # 0.4 10^3/uL (0.0-0.8); MONO % 5.6 % (2.0-8.0); NEUTROPHILS % 60.8 % (36.0-66.0); PLATELET COUNT, AUTOMATED 339 10^3/uL (150-450); RED BLOOD COUNT 2.55 10^6/uL (4.30-6.10); WHITE BLOOD COUNT 6.6 10^3/uL (4.0-10.0)
[2022-06-20 06:47] LABS: ALBUMIN 1.3 G/DL (3.2-5.2); ALKALINE PHOSPHATASE 77 U/L (46-116); ALT/SGPT 16 U/L (7.0-40); AST/SGOT 31 U/L (<34); BILIRUBIN,TOTAL 0.4 MG/DL (0.3-1.2); BLOOD UREA NITROGEN 10 MG/DL (9-23); CALCIUM LEVEL 7.2 MG/DL (8.5-10.1); CARBON DIOXIDE LEVEL 31 MMOL/L (20-31); CHLORIDE LEVEL 106 MMOL/L (98-107); CREATININE FOR GFR 0.54 MG/DL (0.70-1.30); GLOMERULAR FILTRATION RATE > 60.0 (>56); GLUCOSE, FASTING 121 MG/DL (60-100); MAGNESIUM LEVEL 1.7 MG/DL (1.8-2.4); POTASSIUM SERUM 3.9 MMOL/L (3.5-5.1); SODIUM LEVEL 139 MMOL/L (136-145); TOTAL PROTEIN 5.5 G/DL (5.7-8.2)
[2022-06-20 09:00] VITALS: O2SAT 93
[2022-06-20] MEDS: GABAPENTIN 300 MG CAP PO SCH ×3 (09:07→21:28)
[2022-06-20] MEDS: LACTOBACILLUS ACIDOPHILUS CAP (BACID) PO SCH (09:07)
[2022-06-20] MEDS: LACTULOSE 20GM/30ML SYRUP UDC PO SCH ×2 (09:07→21:31)
[2022-06-20] MEDS: LORATADINE 10 MG TAB PO SCH (09:08)
[2022-06-20] MEDS: MAGNESIUM OXIDE 400MG TAB (MAG-OX) PO SCH ×3 (09:08→21:29)
[2022-06-20] MEDS: ENOXAPARIN 40MG/0.4ML SYRINGE (J1650 PER 10MG) SC SCH ×2 (09:08→21:30)
[2022-06-20] MEDS: ATORVASTATIN 20 MG TAB PO SCH (09:08)
[2022-06-20] MEDS: INSULIN LISPRO (NovoLOG) PER UNIT SC SCH ×4 (09:08→21:00)
[2022-06-20] MEDS: NYSTATIN OINTMENT 15 GM TOP SCH ×2 (09:09→21:30)
[2022-06-20] MEDS: ramipriL 5 MG CAP PO SCH ×2 (09:10→21:29)
[2022-06-20] MEDS: ceFAZolin SOD 2 GM in IV 1 EA IV SCH ×3 (09:32→23:30)
[2022-06-20 14:00] VITALS: BP 149/75
[2022-06-20 20:00] VITALS: BP 143/72
[2022-06-21 06:00] VITALS: BP 130/74
[2022-06-21 06:08] LABS: BASO % 0.4 % (0.0-1.0); EOS # 0.2 10^3/uL (0.0-0.5); EOS % 2.8 % (0.0-3.0); HEMATOCRIT 24.1 % (42.0-52.0); HEMOGLOBIN 7.6 g/dl (13.5-17.5); LYMPH # 1.8 10^3/uL (1.5-5.0); LYMPH % 33.9 % (24.0-44.0); MEAN CORPUSCULAR HEMOGLOBIN 29.9 pg (27.0-33.0); MEAN CORPUSCULAR HGB CONC 31.5 g/dl (32.0-36.5); MEAN CORPUSCULAR VOLUME 94.9 fl (80.0-96.0); MONO # 0.3 10^3/uL (0.0-0.8); MONO % 6.3 % (2.0-8.0); PLATELET COUNT, AUTOMATED 348 10^3/uL (150-450); RED BLOOD COUNT 2.54 10^6/uL (4.30-6.10); WHITE BLOOD COUNT 5.4 10^3/uL (4.0-10.0)
[2022-06-21 06:32] LABS: ALBUMIN 1.3 G/DL (3.2-5.2); ALKALINE PHOSPHATASE 83 U/L (46-116); ALT/SGPT < 9 U/L (7.0-40); AST/SGOT 26 U/L (<34); BILIRUBIN,TOTAL 0.3 MG/DL (0.3-1.2); BLOOD UREA NITROGEN 10 MG/DL (9-23); CALCIUM LEVEL 7.3 MG/DL (8.5-10.1); CARBON DIOXIDE LEVEL 31 MMOL/L (20-31); CHLORIDE LEVEL 106 MMOL/L (98-107); CREATININE FOR GFR 0.53 MG/DL (0.70-1.30); GLOMERULAR FILTRATION RATE > 60.0 (>56); GLUCOSE, FASTING 121 MG/DL (60-100); MAGNESIUM LEVEL 1.7 MG/DL (1.8-2.4); POTASSIUM SERUM 4.4 MMOL/L (3.5-5.1); SODIUM LEVEL 140 MMOL/L (136-145); TOTAL PROTEIN 5.5 G/DL (5.7-8.2)
[2022-06-21 09:00] VITALS: O2SAT 96
[2022-06-21] MEDS: INSULIN LISPRO (NovoLOG) PER UNIT SC SCH ×4 (09:03→21:00)
[2022-06-21] MEDS: MAG SULF 1GM/100ML (MAG RUN) 1 GM in IV 1 EA IV SCH ×2 (09:04→11:17)
[2022-06-21] MEDS: LACTULOSE 20GM/30ML SYRUP UDC PO SCH ×2 (09:04→21:04)
[2022-06-21] MEDS: ENOXAPARIN 40MG/0.4ML SYRINGE (J1650 PER 10MG) SC SCH ×2 (09:04→21:05)
[2022-06-21] MEDS: ceFAZolin SOD 2 GM in IV 1 EA IV SCH ×2 (09:04→16:18)
[2022-06-21] MEDS: ramipriL 5 MG CAP PO SCH ×2 (09:05→21:04)
[2022-06-21] MEDS: GABAPENTIN 300 MG CAP PO SCH ×3 (09:05→21:04)
[2022-06-21] MEDS: ATORVASTATIN 20 MG TAB PO SCH (09:05)
[2022-06-21] MEDS: MAGNESIUM OXIDE 400MG TAB (MAG-OX) PO SCH ×3 (09:05→21:03)
[2022-06-21] MEDS: LORATADINE 10 MG TAB PO SCH (09:05)
[2022-06-21] MEDS: LACTOBACILLUS ACIDOPHILUS CAP (BACID) PO SCH (09:05)
[2022-06-21] MEDS: NYSTATIN OINTMENT 15 GM TOP SCH ×2 (09:06→21:06)
[2022-06-21 14:00] VITALS: BP 126/68
[2022-06-21 20:00] VITALS: BP 128/69
[2022-06-21 23:51] VITALS: O2SAT 96
[2022-06-22] MEDS: ceFAZolin SOD 2 GM in IV 1 EA IV SCH ×3 (00:26→17:22)
[2022-06-22 05:16] VITALS: BP 144/78
[2022-06-22 07:12] LABS: BASO % 0.2 % (0.0-1.0); EOS # 0.2 10^3/uL (0.0-0.5); EOS % 3.1 % (0.0-3.0); HEMATOCRIT 25.8 % (42.0-52.0); HEMOGLOBIN 8.2 g/dl (13.5-17.5); LYMPH # 1.7 10^3/uL (1.5-5.0); LYMPH % 33.1 % (24.0-44.0); MEAN CORPUSCULAR HEMOGLOBIN 30.3 pg (27.0-33.0); MEAN CORPUSCULAR HGB CONC 31.8 g/dl (32.0-36.5); MEAN CORPUSCULAR VOLUME 95.2 fl (80.0-96.0); MONO # 0.3 10^3/uL (0.0-0.8); MONO % 4.9 % (2.0-8.0); NEUTROPHILS % 58.5 % (36.0-66.0); PLATELET COUNT, AUTOMATED 370 10^3/uL (150-450); RED BLOOD COUNT 2.71 10^6/uL (4.30-6.10); WHITE BLOOD COUNT 5.1 10^3/uL (4.0-10.0)
[2022-06-22 07:37] LABS: ALBUMIN 1.4 G/DL (3.2-5.2); ALKALINE PHOSPHATASE 94 U/L (46-116); ALT/SGPT < 9 U/L (7.0-40); AST/SGOT 26 U/L (<34); BILIRUBIN,TOTAL 0.4 MG/DL (0.3-1.2); BLOOD UREA NITROGEN 10 MG/DL (9-23); CALCIUM LEVEL 7.4 MG/DL (8.5-10.1); CARBON DIOXIDE LEVEL 31 MMOL/L (20-31); CHLORIDE LEVEL 105 MMOL/L (98-107); CREATININE FOR GFR 0.52 MG/DL (0.70-1.30); GLOMERULAR FILTRATION RATE > 60.0 (>56); GLUCOSE, FASTING 124 MG/DL (60-100); POTASSIUM SERUM 4.5 MMOL/L (3.5-5.1); SODIUM LEVEL 139 MMOL/L (136-145); TOTAL PROTEIN 5.9 G/DL (5.7-8.2)
[2022-06-22] MEDS: INSULIN LISPRO (NovoLOG) PER UNIT SC SCH ×4 (08:42→21:00)
[2022-06-22] MEDS: ATORVASTATIN 20 MG TAB PO SCH (08:43)
[2022-06-22] MEDS: LACTULOSE 20GM/30ML SYRUP UDC PO SCH ×2 (08:43→21:00)
[2022-06-22] MEDS: LACTOBACILLUS ACIDOPHILUS CAP (BACID) PO SCH (08:43)
[2022-06-22] MEDS: GABAPENTIN 300 MG CAP PO SCH ×3 (08:43→20:43)
[2022-06-22] MEDS: LORATADINE 10 MG TAB PO SCH (08:43)
[2022-06-22] MEDS: NYSTATIN OINTMENT 15 GM TOP SCH ×2 (08:44→20:42)
[2022-06-22] MEDS: ENOXAPARIN 40MG/0.4ML SYRINGE (J1650 PER 10MG) SC SCH ×2 (08:45→20:44)
[2022-06-22] MEDS: ramipriL 5 MG CAP PO SCH ×2 (08:46→20:43)
[2022-06-22] MEDS ORDERED: LIDOCAINE 1% MDV 20ML VIAL As Ordered ONE (10:43)
[2022-06-22 16:00] VITALS: BP 139/76
[2022-06-22] MEDS: SODIUM CHLORIDE 0.9% INJ 10 ML SYR IV SCH (17:23)
[2022-06-23] MEDS: ceFAZolin SOD 2 GM in IV 1 EA IV SCH ×4 (00:13→23:13)
[2022-06-23 05:02] VITALS: BP 140/84
[2022-06-23 06:02] LABS: BASO % 0.4 % (0.0-1.0); EOS # 0.2 10^3/uL (0.0-0.5); EOS % 3.8 % (0.0-3.0); HEMATOCRIT 25.7 % (42.0-52.0); HEMOGLOBIN 8.2 g/dl (13.5-17.5); LYMPH # 1.9 10^3/uL (1.5-5.0); LYMPH % 38.5 % (24.0-44.0); MEAN CORPUSCULAR HEMOGLOBIN 30.1 pg (27.0-33.0); MEAN CORPUSCULAR HGB CONC 31.9 g/dl (32.0-36.5); MEAN CORPUSCULAR VOLUME 94.5 fl (80.0-96.0); MONO # 0.4 10^3/uL (0.0-0.8); NEUTROPHILS # 2.5 10^3/uL (1.5-8.5); NEUTROPHILS % 50.1 % (36.0-66.0); PLATELET COUNT, AUTOMATED 349 10^3/uL (150-450); RED BLOOD COUNT 2.72 10^6/uL (4.30-6.10)
[2022-06-23 06:31] LABS: ALBUMIN 1.4 G/DL (3.2-5.2); ALKALINE PHOSPHATASE 96 U/L (46-116); ALT/SGPT < 9 U/L (7.0-40); AST/SGOT 25 U/L (<34); BILIRUBIN,TOTAL 0.3 MG/DL (0.3-1.2); BLOOD UREA NITROGEN 9 MG/DL (9-23); CALCIUM LEVEL 7.9 MG/DL (8.5-10.1); CARBON DIOXIDE LEVEL 30 MMOL/L (20-31); CHLORIDE LEVEL 106 MMOL/L (98-107); CREATININE FOR GFR 0.52 MG/DL (0.70-1.30); GLOMERULAR FILTRATION RATE > 60.0 (>56); GLUCOSE, FASTING 118 MG/DL (60-100); POTASSIUM SERUM 4.4 MMOL/L (3.5-5.1); SODIUM LEVEL 140 MMOL/L (136-145); TOTAL PROTEIN 5.8 G/DL (5.7-8.2)
[2022-06-23] MEDS: INSULIN LISPRO (NovoLOG) PER UNIT SC SCH ×4 (08:30→21:00)
[2022-06-23] MEDS: LACTOBACILLUS ACIDOPHILUS CAP (BACID) PO SCH (08:31)
[2022-06-23] MEDS: ENOXAPARIN 40MG/0.4ML SYRINGE (J1650 PER 10MG) SC SCH ×2 (08:31→21:41)
[2022-06-23] MEDS: GABAPENTIN 300 MG CAP PO SCH ×3 (08:31→21:42)
[2022-06-23] MEDS: LORATADINE 10 MG TAB PO SCH (08:31)
[2022-06-23] MEDS: ATORVASTATIN 20 MG TAB PO SCH (08:31)
[2022-06-23] MEDS: ramipriL 5 MG CAP PO SCH ×2 (08:31→21:43)
[2022-06-23] MEDS: NYSTATIN OINTMENT 15 GM TOP SCH ×2 (08:32→21:43)
[2022-06-23] MEDS: LACTULOSE 20GM/30ML SYRUP UDC PO SCH ×2 (08:32→21:00)
[2022-06-23] MEDS: SODIUM CHLORIDE 0.9% INJ 10 ML SYR IV SCH (17:21)
[2022-06-24 05:53] VITALS: BP 138/81
[2022-06-24 06:09] LABS: BASO % 0.4 % (0.0-1.0); EOS # 0.2 10^3/uL (0.0-0.5); EOS % 4.2 % (0.0-3.0); HEMATOCRIT 25.1 % (42.0-52.0); HEMOGLOBIN 7.8 g/dl (13.5-17.5); LYMPH # 2.1 10^3/uL (1.5-5.0); LYMPH % 38.9 % (24.0-44.0); MEAN CORPUSCULAR HEMOGLOBIN 29.4 pg (27.0-33.0); MEAN CORPUSCULAR HGB CONC 31.1 g/dl (32.0-36.5); MEAN CORPUSCULAR VOLUME 94.7 fl (80.0-96.0); MONO # 0.3 10^3/uL (0.0-0.8); MONO % 6.2 % (2.0-8.0); NEUTROPHILS # 2.7 10^3/uL (1.5-8.5); NEUTROPHILS % 49.9 % (36.0-66.0); PLATELET COUNT, AUTOMATED 348 10^3/uL (150-450); RED BLOOD COUNT 2.65 10^6/uL (4.30-6.10); WHITE BLOOD COUNT 5.3 10^3/uL (4.0-10.0)
[2022-06-24 06:38] LABS: ALBUMIN 1.4 G/DL (3.2-5.2); ALKALINE PHOSPHATASE 90 U/L (46-116); ALT/SGPT < 9 U/L (7.0-40); AST/SGOT 22 U/L (<34); BILIRUBIN,TOTAL 0.3 MG/DL (0.3-1.2); BLOOD UREA NITROGEN 9 MG/DL (9-23); CALCIUM LEVEL 7.5 MG/DL (8.5-10.1); CARBON DIOXIDE LEVEL 28 MMOL/L (20-31); CHLORIDE LEVEL 106 MMOL/L (98-107); CREATININE FOR GFR 0.54 MG/DL (0.70-1.30); GLOMERULAR FILTRATION RATE > 60.0 (>56); GLUCOSE, FASTING 114 MG/DL (60-100); POTASSIUM SERUM 4.1 MMOL/L (3.5-5.1); SODIUM LEVEL 139 MMOL/L (136-145); TOTAL PROTEIN 5.7 G/DL (5.7-8.2)
[2022-06-24] MEDS: INSULIN LISPRO (NovoLOG) PER UNIT SC SCH ×4 (08:47→20:56)
[2022-06-24] MEDS: LORATADINE 10 MG TAB PO SCH (08:47)
[2022-06-24] MEDS: ATORVASTATIN 20 MG TAB PO SCH (08:47)
[2022-06-24] MEDS: GABAPENTIN 300 MG CAP PO SCH ×3 (08:48→21:16)
[2022-06-24] MEDS: LACTULOSE 20GM/30ML SYRUP UDC PO SCH ×2 (08:48→21:16)
[2022-06-24] MEDS: ramipriL 5 MG CAP PO SCH ×2 (08:48→21:17)
[2022-06-24] MEDS: LACTOBACILLUS ACIDOPHILUS CAP (BACID) PO SCH (08:48)
[2022-06-24] MEDS: NYSTATIN OINTMENT 15 GM TOP SCH ×2 (08:49→21:18)
[2022-06-24] MEDS: ENOXAPARIN 40MG/0.4ML SYRINGE (J1650 PER 10MG) SC SCH ×2 (08:49→21:16)
[2022-06-24] MEDS: ceFAZolin SOD 2 GM in IV 1 EA IV SCH ×3 (09:05→23:40)
[2022-06-24] MEDS: SODIUM CHLORIDE 0.9% INJ 10 ML SYR IV PRN (09:05)
[2022-06-24] MEDS: SIMETHICONE 80MG CHEW TAB PO PRN ×2 (09:05→16:31)
[2022-06-24] MEDS ORDERED: MUPIROCIN 2% OINT 22 GM TUBE TOP SCH (12:00)
[2022-06-24] MEDS: SODIUM CHLORIDE 0.9% INJ 10 ML SYR IV SCH (16:32)
[2022-06-25] MEDS: SODIUM CHLORIDE 0.9% INJ 10 ML SYR IV PRN ×2 (00:29→09:39)
[2022-06-25 06:00] VITALS: BP 137/86
[2022-06-25] MEDS: LACTULOSE 20GM/30ML SYRUP UDC PO SCH (09:37)
[2022-06-25] MEDS: ceFAZolin SOD 2 GM in IV 1 EA IV SCH (09:37)
[2022-06-25] MEDS: ENOXAPARIN 40MG/0.4ML SYRINGE (J1650 PER 10MG) SC SCH (09:37)
[2022-06-25] MEDS: LACTOBACILLUS ACIDOPHILUS CAP (BACID) PO SCH (09:38)
[2022-06-25] MEDS: INSULIN LISPRO (NovoLOG) PER UNIT SC SCH ×2 (09:38→13:25)
[2022-06-25] MEDS: ATORVASTATIN 20 MG TAB PO SCH (09:38)
[2022-06-25] MEDS: GABAPENTIN 300 MG CAP PO SCH (09:38)
[2022-06-25] MEDS: LORATADINE 10 MG TAB PO SCH (09:38)
[2022-06-25] MEDS: SIMETHICONE 80MG CHEW TAB PO PRN (09:39)
[2022-06-25] MEDS: ramipriL 5 MG CAP PO SCH (09:39)
[2022-06-25 09:40] VITALS: BP 137/84
[2022-06-25] MEDS: NYSTATIN OINTMENT 15 GM TOP SCH (09:40)
[2022-06-25] MEDS ORDERED: ACET1TAB55 PO (10:28)
[2022-06-25] MEDS ORDERED: MUPI2OI TOP (10:28)
[2022-06-25] MEDS ORDERED: OXYC-517 PO (10:28)
[2022-06-25] MEDS ORDERED: LACT20EL PO (10:28)
[2022-06-25] MEDS ORDERED: META0.52 PO (10:28)
[2022-06-25] MEDS ORDERED: MIRA3350 PO (10:28)
[2022-06-25] MEDS ORDERED: ceFAZolin SOD 2 GM in IV 1 EA IV ONE (13:00)
== END 2022-06-25 15:33 | DRG 854 ==
LOC: EDBD 14:00 → M ED 14:00 → M ED INP 20:51 → ENRESERV 22:51 → M PCU 06-11 00:38 → M MSPAV 06-14 11:16
PROVIDERS: ADMIT Family Medicine; ATTEND Student in an Organized Health Care Education/Training Program
PROC: B246ZZZ Ultrasonography of Right and Left Heart (ICD-10-PCS; 2022-06-13)
PROC: 0QPH04Z Removal of Internal Fixation Device from Left Tibia, Open Approach (ICD-10-PCS; 2022-06-16)
PROC: 01NG0ZZ Release Tibial Nerve, Open Approach (ICD-10-PCS; 2022-06-16)
PROC: 01NH0ZZ Release Peroneal Nerve, Open Approach (ICD-10-PCS; 2022-06-16)
PROC: 0Y6J0Z3 Detachment at Left Lower Leg, Low, Open Approach (ICD-10-PCS; principal; 2022-06-16 15:30)
PROC: 05H933Z Insertion of Infusion Device into Right Brachial Vein, Percutaneous Approach (ICD-10-PCS; 2022-06-22)
DX: A41.01 Sepsis due to Methicillin susceptible Staphylococcus aureus (principal); E87.1 Hypo-osmolality and hyponatremia; M00.872 Arthritis due to other bacteria, left ankle and foot; L03.116 Cellulitis of left lower limb; Z68.41 Body mass index [BMI] 40.0-44.9, adult; K56.7 Ileus, unspecified; I50.32 Chronic diastolic (congestive) heart failure; E66.2 Morbid (severe) obesity with alveolar hypoventilation; J98.11 Atelectasis; R65.20 Severe sepsis without septic shock; R09.02 Hypoxemia; I11.0 Hypertensive heart disease with heart failure; E78.5 Hyperlipidemia, unspecified; J30.9 Allergic rhinitis, unspecified; E11.610 Type 2 diabetes mellitus with diabetic neuropathic arthropathy; S82.52XD Displaced fracture of medial malleolus of left tibia, subsequent encounter for closed fracture with routine healing; S82.62XD Displaced fracture of lateral malleolus of left fibula, subsequent encounter for closed fracture with routine healing; R19.5 Other fecal abnormalities; G54.6 Phantom limb syndrome with pain; K56.41 Fecal impaction; M25.462 Effusion, left knee; Z79.84 Long term (current) use of oral hypoglycemic drugs; Z79.899 Other long term (current) drug therapy; Z91.048 Other nonmedicinal substance allergy status

== ENCOUNTER → 2022-07-14 | Outpatient (REF) | payer OTHER ==
[~2022-07-14] MED LIST changes: +ACET1TAB55 PO; +AMLO1TAB25 PO; +ATOR80TA59 PO; +BENF150C3 PO; +LACT20EL PO; +META0.52 PO; +METF10004 PO; +MIRA3350 PO; +MUPI2OI TOP; +OXYC-517 PO; +SILV50CR TOP
[2022-07-14 07:37] LABS: HEMATOCRIT 35.1 % (42.0-52.0); HEMOGLOBIN 11.4 g/dl (13.5-17.5); MEAN CORPUSCULAR HGB CONC 32.5 g/dl (32.0-36.5); MEAN CORPUSCULAR VOLUME 92.4 fl (80.0-96.0); PLATELET COUNT, AUTOMATED 372 10^3/uL (150-450); WHITE BLOOD COUNT 7.6 10^3/uL (4.0-10.0)
[2022-07-14 08:07] LABS: ALKALINE PHOSPHATASE 149 U/L (46-116); ALT/SGPT 12 U/L (7.0-40); AST/SGOT 16 U/L (<34); BILIRUBIN,TOTAL 0.6 MG/DL (0.3-1.2); BLOOD UREA NITROGEN 14 MG/DL (9-23); CALCIUM LEVEL 9.1 MG/DL (8.5-10.1); CARBON DIOXIDE LEVEL 27 MMOL/L (20-31); CHLORIDE LEVEL 98 MMOL/L (98-107); CHOLESTEROL LEVEL 133 MG/DL (<200); CREATININE FOR GFR 0.53 MG/DL (0.70-1.30); GLOMERULAR FILTRATION RATE > 60.0 (>56); GLUCOSE, FASTING 139 MG/DL (60-100); HDL CHOLESTEROL 34.1 MG/DL (>40); LDL CHOLESTEROL 76.9 MG/DL (<100); NON-HDL-C 98.9 MG/DL; SODIUM LEVEL 134 MMOL/L (136-145); TOTAL PROTEIN 7.7 G/DL (5.7-8.2); TRIGLYCERIDES LEVEL 110 MG/DL (<150)
[2022-07-14 08:22] LABS: HEMOGLOBIN A1c 5.7 % (4.0-6.0)
== END ==
LOC: SKLAB2 07:00
PROVIDERS: ATTEND Internal Medicine
DX: I10 Essential (primary) hypertension (principal); E11.9 Type 2 diabetes mellitus without complications

== ENCOUNTER → 2022-07-23 | Outpatient (REF) | payer OTHER | LOC: SKLAB2 07:00 | PROVIDERS: ATTEND Internal Medicine | DX: Z47.81 Encounter for orthopedic aftercare following surgical amputation (principal); Z89.511 Acquired absence of right leg below knee; Z96.9 Presence of functional implant, unspecified; M17.12 Unilateral primary osteoarthritis, left knee ==

== ENCOUNTER 2022-09-01 09:59 | Outpatient (RCR) | payer OTHER | END 2022-09-11 | LOC: M PT 09:59 | PROVIDERS: ATTEND Physician Assistant | DX: Z89.512 Acquired absence of left leg below knee (principal); Z47.89 Encounter for other orthopedic aftercare ==

== ENCOUNTER → 2023-01-21 | Outpatient (CLI) | payer OTHER | LOC: M WUC 14:24 | PROVIDERS: ATTEND Internal Medicine | DX: L03.031 Cellulitis of right toe (principal) ==